=== PATIENT | male | born 1995 | race American Indian/Alaskan Native ===

== ENCOUNTER 2019-04-06 22:19 | Emergency (ER) | payer MEDICAID ==
[2019-04-06 22:58] VITALS: BP 130/79
[2019-04-06 23:46] LABS: Bilirubin,Urine NEG (Negative); Blood,Urine NEG (Negative); Color,Urine Straw (Yellow); Mucus,Urine FEW /HPF; Protein,Urine <15 mg/dL mg/dL (Negative); Urobilinogen,Urine < 2.0 mg/dL (<2.0); WBC,Urine < 1.0 /HPF (0.0-6.0)
[2019-04-07] MEDS ORDERED: ROCEPHIN IM STA (01:37)
[2019-04-07] MEDS ORDERED: ZITHROMAX PO STA (01:37)
[2019-04-07] MEDS ORDERED: XYLOCAINE 1% MPF 5 mL INFILTRATI ONE (01:37)
--- NOTE | 2019-04-07 01:42 | Emergency Department Report ---
ED Male HPI - General Chief complaint: Urogenital-Male Stated complaint: BURN WHEN URINATING Time Seen by Provider: 04/07/19 01:36 Source: patient Mode of arrival: Ambulatory Limitations: No Limitations - History of Present Illness MD Complaint: dysuria -: Gradual Radiation: none Severity: mild Quality: burning Consistency: constant Improves with: none Worsens with: urination dysuria. denies: swelling, mass, rash, fever, nausea/vomiting, incontinence - Related Data Previous Rx's Medication Instructions Recorded Last Taken Type Neomycin/Bacitracin/Polymyxinb 14.2 gm TP BID #1 oint...g. 02/15/16 Unknown Rx [Neosporin Antibiotic Ointment] Allergies Allergy/AdvReac Type Severity Reaction Status Date / Time No Known Allergies Allergy Unverified 01/20/16 01:38 ED Review of Systems ROS: Stated complaint: BURN WHEN URINATING Other details as noted in HPI Comment: All other systems reviewed and negative ED Past Medical Hx - Past Medical History Previous Medical History?: No - Surgical History Past Surgical History?: No - Social History Smoking Status: Never Smoker Substance Use Type: None - Medications Home Medications: Home Medications Medication Instructions Recorded Confirmed Last Taken Type Neomycin/Bacitracin/Polymyxinb 14.2 gm TP BID #1 oint...g. 02/15/16 Unknown Rx [Neosporin Antibiotic Ointment] ED Physical Exam - General Limitations: No Limitations General appearance: alert, in no apparent distress - Head Head exam: Present: atraumatic, normocephalic - Eye Eye exam: Present: normal appearance, PERRL, EOMI Pupils: Present: normal accommodation - ENT ENT exam: Present: normal exam, mucous membranes moist - Neck Neck exam: Present: normal inspection, full ROM - Respiratory Respiratory exam: Present: normal lung sounds bilaterally. Absent: respiratory distress, wheezes, rales, chest wall tenderness - Cardiovascular Cardiovascular Exam: Present: regular rate, normal rhythm. Absent: systolic murmur, diastolic murmur, rubs, gallop - GI/Abdominal GI/Abdominal exam: Present: soft, normal bowel sounds. Absent: distended, hyperactive bowel sounds - Rectal Rectal exam: Present: deferred - Extremities Exam Extremities exam: Present: normal inspection - Back Exam Back exam: Present: normal inspection, full ROM. Absent: CVA tenderness (R), CVA tenderness (L) - Neurological Exam Neurological exam: Present: alert, oriented X3, CN II-XII intact, normal gait - Psychiatric Psychiatric exam: Present: normal affect, normal mood - Skin Skin exam: Present: warm, dry, intact, normal color. Absent: rash ED Course Vital Signs 04/06/19 22:56 Temperature 98.2 F Pulse Rate 80 Respiratory 16 Rate Blood Pressure 130/79 O2 Sat by Pulse 100 Oximetry ED Medical Decision Making - Medical Decision Making 2. Seizure [place] male presented with department with dysuria, no discharge suspicion of possible STD exposure was treated emergency department for chlamydia and gonorrhea. Discussed with him the need to follow up with department for complete STD evaluation. Critical care attestation.: If time is entered above; I have spent that time in minutes in the direct care of this critically ill patient, excluding procedure time. ED Disposition Clinical Impression: Dysuria, Possible exposure to STD Disposition: DC-01 TO HOME OR SELFCARE Is pt being admited?: No Does the pt Need Aspirin: No Condition: Stable Instructions: Sexually Transmitted Diseases (ED), Safe Sex (ED) Referrals: [facility] [Provider Group] - 3-5 Days
== END 2019-04-07 02:54 | disposition home or self-care (01) ==
LOC: ED 22:19
DX: R30.0 Dysuria (principal); Z79.899 Other long term (current) drug therapy
CPT/HCPCS: 81001; 96372; 99283; J0696